=== PATIENT | male | born 2000 | race Caucasian/White ===

== ENCOUNTER 2024-05-22 18:42 | Emergency (ER) | payer OTHER, SELFPAY ==
[2024-05-22 18:49] VITALS: BP 137/84; PULSE 80; RESP 16; TEMP 36.7; O2SAT 98
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
[2024-05-22] MEDS: methocarbamol 750 mg Tablet PO (21:29)
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
[2024-05-22 21:33] VITALS: BP 125/73; PULSE 76; O2SAT 97
== END 2024-05-22 21:35 | disposition home or self-care (01) ==
PROVIDERS: Emergency Provider Physician Assistant
DX: S39.012A Strain of muscle, fascia and tendon of lower back, initial encounter (principal); S16.1XXA Strain of muscle, fascia and tendon at neck level, initial encounter; S60.512A Abrasion of left hand, initial encounter; V89.2XXA Person injured in unspecified motor-vehicle accident, traffic, initial encounter
CPT/HCPCS: 72040; 72100; 73130; 99284

== ENCOUNTER → 2025-04-16 10:44 | Outpatient (BNVA) | payer OTHER, SELFPAY | PROVIDERS: PCP Family Medicine; Visit Provider Family Medicine | DX: Z02.1 Encounter for pre-employment examination (principal); Z00.00 Encounter for general adult medical examination without abnormal findings | CPT/HCPCS: 81000; 85018 ==